=== PATIENT | male | born 1935 | race African-American/Black ===

== ENCOUNTER 2017-04-06 19:48 | Observation (INO) | payer MEDICARE ==
[~2017-04-06 19:48] MED LIST: Iopamidol 370 76% 100 ML VIAL ONE
[2017-04-06 20:15] LABS: #Basophils 0.1 thou/uL (0.0-0.2); #Eosinphils 0.1 thou/uL (0.0-0.7); #Lymphocytes 1.7 thou/uL (1.20-3.40); #Monocytes 0.6 thou/uL (0.11-0.59); %Basophils 0.9 % (0.0-1.0); %Eosinophils 1.8 % (0.0-10.0); %Monocytes 8.6 % (0.0-10.0); %Neutrophils 62.7 % (42.0-75.0); Hemoglobin 11.8 g/dL (14.0-18.0); Mean Corpuscular HGB CONC 32.6 g/dL (32.0-36.0); Mean Corpuscular Hemoglobin 30.5 pg (27.0-31.0); Mean Corpuscular Volume 93.5 fl (80.0-94.0); Platelet Count 264 thou/uL (130-400); RBC Distribution Width 14.4 % (11.5-14.5); Red Blood Cell (RBC) Count 3.86 mill/uL (4.70-6.10); White Blood Cell (WBC) Count 6.4 thou/uL (4.8-10.8)
[2017-04-06 20:26] LABS: D-Dimer Test 1.52 *mcg/mL (0.27-0.43)
[2017-04-06 20:34] LABS: ALT (SGPT) 13 U/L (8-55); AST (SGOT) 31 U/L (5-34); Albumin 4.2 g/dL (3.4-4.8); Alcohol 217 mg/dL (Less than 10); Alkaline Phosphatase 70 U/L (40-150); Anion Gap 15 mmol/L (10-20); BUN (Urea Nitrogen) 9 mg/dL (8.4-25.7); Bilirubin, Total 0.7 mg/dL (0.2-1.2); Calc. Creatinine Clearance 0 mL/min (70-130); Calcium 9.1 mg/dL (7.8-10.44); Carbon Dioxide 23 mmol/L (23-31); Chloride 96 mmol/L (98-107); Estimated GFR-MDRD 77; Globulin 4.4 g/dL (2.4-3.5); Glucose 94 mg/dL (83-110); Potassium 4.3 mmol/L (3.5-5.1); Protein, Total 8.6 g/dL (5.8-8.1); Sodium 130 mmol/L (136-145)
[2017-04-06 20:35] LABS: CKMB 3.7 ng/mL (0-6.6); Troponin I 0.015 ng/mL (< 0.028)
--- NOTE | 2017-04-06 20:46 | RAD ---
PORTABLE CHEST 04/06/17 An AP portable film at 1999 shows a normal sized heart. There are no congestive changes, pleural eff usions or lobar consolidations. IMPRESSION: No acute thoracic finding. POS: HOME
--- NOTE | 2017-04-06 20:51 | CT ---
CT OF THE BRAIN WITHOUT CONTRAST 04/06/17 Comparison is made with the 02/26/15 study. There has been no adverse interval change. No intracranial bleeding or extra-axial hematoma was seen . Diffuse atrophy with moderate compensatory dilatation of the ventricles is present as before. The ventricular sizes are no different. Patchy deep white matter lucency is consistent with chronic micr ovascular ischemia. There are a few more focal low density areas around the basal ganglia bilaterall y that could be small lacunar infarcts. The skull appears intact. The sphenoid sinus is clear, as ar e the mastoid air cells. IMPRESSION: Diffuse severe ischemic changes and atrophy. No acute intracranial findings. POS: HOME
--- NOTE | 2017-04-06 21:08 | CT ---
CT CERVICAL SPINE 04/06/17 Comparison is made with an 02/26/15 study. Axial slices were acquired, then coronal and sagittal reconstructions were done. No fracture, dislocation, or acute bony change was seen at any cervical level. the C1 to dens distan ce is normal and the soft tissues are normal in thickness. There are extensive degenerative changes throughout the spine with disc space narrowing, particularly noted at C4-C5 and C5-C6. Very large an terior and posterior osteophytes are present. Overall, the appearance of the cervical spine is not s ubstantially different than the prior exam. Multilevel spinal stenosis is present. Findings by caitlin sanchez follow: C1-C2: No acute findings. C2-C3: Very slight right foraminal narrowing. C3-C4: Mildly protruding disc osteophyte complex centrally. Mild bilateral foraminal stenosis. C4-C5: Mild right foraminal stenosis and moderate left foraminal stenosis. Central canal stenosis wi th 9 mm AP diameter of canal. C5-C6: Moderate bilateral foraminal stenosis. Central canal stenosis with 9 mm AP diameter. C6-C7: 10 mm AP diameter central canal. C7-T1: There is some disc space narrowing here. No acute change. T1-T2: No acute findings. IMPRESSION: 1. No acute traumatic changes. 2. Diffuse moderately severe arthritic changes with central canal stenosis at multiple levels a s indicated above. POS: HOME
[2017-04-06] MEDS ORDERED: Adacel (T-DAP) 0.5 ML VIAL ONE (21:43)
[2017-04-06 22:07] LABS: Bilirubin Negative (Negative); Blood, Urine Trace (Negative); Clarity Clear (Clear); Glucose, Urine (Dipstick) Negative (Negative); Leukocyte Negative (Negative); Nitrite Negative (Negative); Protein, Urine (Dipstick) Negative (Neg-Trace); Specific Gravity, Urine 1.004 (1.002-1.036); Urobilinogen 0.2 mg/dL (0.2-1.0)
[2017-04-06 22:15] LABS: Bacteria/HPF Rare-Few HPF (None Seen); RBC/HPF 0-3 HPF (0-3); Squamous Epithelial 0-3 HPF (0-3); WBC/HPF 0-3 HPF (0-3)
[2017-04-06 22:16] LABS: Crystals/HPF RARE AMORPH URATES HPF (Negative)
[2017-04-06 22:25] LABS: Amphetamine Not Detected (NotDetected); Barbiturates Screen Not Detected (NotDetected); Benzodiazepine Screen Not Detected (NotDetected); Cocaine Metabolite Screen Not Detected (NotDetected); Medtox Control Line Valid? VALID (VALID); Methadone Not Detected (NotDetected); Methamphetamine Not Detected (NotDetected); Opiate Screen Not Detected (NotDetected); Oxycodone Screen Not Detected (NotDetected); Phencyclidine (PCP) Not Detected (NotDetected); THC/Cannabinoid Screen Not Detected (NotDetected); Tricyclic Screen Not Detected (NotDetected)
--- NOTE | 2017-04-06 22:45 | CT ---
CT ANGIO OF THE CHEST 04/06/[address] of the chest was performed after a bolus of IV contrast. Axial slices were acquired, then oblique coronal reformations through the pulmonary arteries were obtained. There is good opacification of the pulmonary arteries with no internal filling defects to suggest em boli. There is no sign of aortic aneurysm or dissection. Arteriosclerosis is present, including in t he coronary arteries. The heart is enlarged but there is no substantial pericardial effusion. Emphysematous changes are seen throughout the lungs with areas of fibrosis throughout. A little depe ndent atelectasis is noted posteriorly. No worrisome mass or lobar consolidation was seen. There are no effusions. IMPRESSION: 1. No evidence of pulmonary embolism. 2. Coronary arteriosclerosis. 3. Right hilar adenopathy of uncertain significance. 4. COPD. POS: HOME
[2017-04-07] MEDS ORDERED: Acetaminophen 325 MG TAB PO PRN (00:22)
[2017-04-07] MEDS: Sodium Chloride 0.9% 1,000 ML IV SCH ×3 (01:00→10:19)
[2017-04-07 06:11] LABS: #Basophils 0.1 thou/uL (0.0-0.2); #Eosinphils 0.1 thou/uL (0.0-0.7); #Lymphocytes 1.3 thou/uL (1.20-3.40); #Monocytes 0.7 thou/uL (0.11-0.59); #Neutrophils 7.3 thou/uL (1.40-6.50); %Basophils 0.8 % (0.0-1.0); %Eosinophils 0.7 % (0.0-10.0); %Lymphocytes 13.8 % (21.0-51.0); %Monocytes 7.8 % (0.0-10.0); %Neutrophils 76.9 % (42.0-75.0); Hemoglobin 12.2 g/dL (14.0-18.0); Mean Corpuscular HGB CONC 33.6 g/dL (32.0-36.0); Mean Corpuscular Hemoglobin 31.2 pg (27.0-31.0); Mean Corpuscular Volume 92.8 fl (80.0-94.0); Mean Platelet Volume 7.8 fL (7.4-10.4); Platelet Count 268 thou/uL (130-400); RBC Distribution Width 14.4 % (11.5-14.5); Red Blood Cell (RBC) Count 3.92 mill/uL (4.70-6.10); White Blood Cell (WBC) Count 9.5 thou/uL (4.8-10.8)
[2017-04-07 14:02] VITALS: BP 160/76; TEMP 97.6
--- NOTE | 2017-04-07 16:19 | SS ---
CHIEF COMPLAINT: Found down and intoxicated. HISTORY OF PRESENT ILLNESS: Mr. Chase is an 82-year-old -[place] male with a past medical history of alcohol abuse, who was found face down in his yard by a neighbor. They called EMS who transported the patient to the emergency department. He has a history of alcoholism and neighbors had reported that he drinks and frequently appears intoxicated and unsteady on his feet. He underwent a thorough workup in the ER and was found to have a laceration to the lower right lip, which was sutured. He underwent a CT scan of the brain, C-spine and CT angiogram to rule out PE without any significant acute findings. His lab workup was unremarkable except for a sodium of 130. He had a positive D-dimer, which is why the CT angiogram was performed. He had a serum alcohol level that was elevated to the point that he could not be discharged safely from the emergency room and therefore was placed in observation overnight. The patient is a poor historian, but this morning is oriented x3. This is improved from the emergency room, where he was oriented to person and place only. He received IV fluids overnight and his alcohol level has improved to the point that he is stable for discharge. He has no other complaints this morning. PAST MEDICAL HISTORY: 1. Hypertension. 2. History of T3 N0 colon cancer, which was obstructing and required emergency surgery in 07/2016. 3. History of prostate cancer, treated with chemo and radiation. 4. Alcohol abuse. PAST SURGICAL HISTORY: 1. Prostate cancer surgery. 2. Appendectomy. 3. Prostatectomy. 4. Left colon resection with reversal of colostomy. 5. Laparoscopic ventral hernia repair. SOCIAL HISTORY: The patient admits to drinking a few beers at home daily. Denies drug use. Nonsmoker. FAMILY HISTORY: Noncontributory. ALLERGIES: PENICILLIN. MEDICATIONS: The patient states he takes a little white pill for his blood pressure, but does not know the name. REVIEW OF SYSTEMS: General: Denies fever, malaise, myalgias, or memory loss. Eyes: Denies changes in vision, diplopia. ENT: Denies facial pain, nasal congestion, sore throat. He has a laceration to his lip lower right, which was sutured in the ER. Cardiovascular: Denies chest pain, palpitations, orthopnea, or PND. Respiratory: Denies shortness of breath, cough, sputum production or hemoptysis. Abdomen: Denies abdominal pain, nausea, vomiting, diarrhea, or constipation. Genitourinary: Denies dysuria, urinary frequency or urgency. Musculoskeletal: The patient denies pain. Neurologic: The patient denies numbness, tingling or focal weakness. Psych: Denies anxiety, depression. PHYSICAL EXAMINATION: VITAL SIGNS: Temperature 98.6, heart rate 95, respirations 18, O2 saturation 98 % on room air, blood pressure 171/81. GENERAL: Slightly disheveled-appearing -[place] male, who is alert and oriented x3. HEENT: Normocephalic, frontal soft tissue swelling on the left noted without ecchymoses. Nares are patent without discharge. Tongue protrudes on the midline. The right lower lip wound is clean, dry, and intact and well approximated with at least two sutures in place. There is no discharge. NECK: Supple, without lymphadenopathy, thyromegaly, JVD or bruit. HEART: Regular rate and rhythm, normal S1, S2. A 3/6 systolic ejection murmur best heard left upper sternal border. No radiation. LUNGS: Clear to auscultation with good air entry bilaterally, no crackles or wheezes. ABDOMEN: Positive bowel sounds in all four quadrants, soft, nontender, nondistended. No masses, guarding, or rebound tenderness. EXTREMITIES: No cyanosis, clubbing or edema. NEUROLOGIC: Cranial nerves II through XII grossly intact. No focal deficits. LABORATORY DATA: White count 9.5, hemoglobin 12.2, hematocrit 36.4, MCV 93.8, and platelets 268. PT 13, INR 1.0, APTT 29. D-dimer is 1.52. Sodium 130, potassium 4.3, chloride 96, bicarbonate 23, BUN 9, creatinine 1.1, glucose 94, calcium 9.1, AST 31, ALT 13, alkaline phosphatase 70, CK-MB 3.7, troponin I 0.015, serum total protein 8.6, and albumin 4.2. Urinalysis is significant for trace of blood with 0-3 rbc's seen, otherwise negative. Urine drug screen is negative. Plasma alcohol on admission was 217 and at discharge is 39, which was done at 6 this morning. IMAGIN. Cervical spine CT shows no acute traumatic changes. Diffuse moderately severe arthritic changes with central canal stenosis at multiple levels. 2. Chest x-ray, no acute thoracic findings. 3. Brain CT shows diffuse severe ischemic changes and atrophy, but no acute intracranial findings. 4. Chest thorax CTA shows no evidence of pulmonary embolism. Coronary arteriosclerosis. Right hilar adenopathy of uncertain significance. COPD. ASSESSMENT AND PLAN: 1. Acute alcohol intoxication. The patient's plasma alcohol level has declined overnight with IV fluids. He is back to his normal baseline mental status. Therefore, he may be safely discharged back to home. He has been advised to cut down slowly to cessation of alcohol to avoid withdrawal. He is strongly advised to receive either rehabilitation or enter in Alcoholics Anonymous Program for help. 2. Hypertension. The patient was unsure of his chronic medications, but will resume this upon returning home. He is currently asymptomatic. 3. Lip laceration. Chromic suture was placed and therefore should resolve without needing removal in the office. Nevertheless, I would like him to see his PCP within the week to take a look at the laceration to rule out signs of infection. 4. Hyponatremia. This more than likely is due to the beer-drinker's potomania. Again, the patient has been advised to cut down slowly to cessation of alcohol. DISPOSITION: Discharged to home. CONDITION: Good. MEDICATIONS: The patient will resume his home blood pressure medication of unknown name. FOLLOWUP: Follow up with his primary care physician, Dr. Jim Ren within 7 days. MYLENE
--- NOTE | 2017-04-07 22:39 | RAD ---
RIGHT HAND THREE VIEWS: Date: 04-07-17 FINDINGS: There is a subtle nondisplaced fracture at the base of the proximal phalanx of the ring finger with extension into the fourth MCP joint. This appears to be a recent injury. Severe arthritic changes ar e seen throughout the wrist and IP joints of the fingers. The lunate is completely fragmented and th e carpal relations along the proximal row are no longer normal. This appears to be long standing and not acute. Severe arterial sclerotic change is seen in the arteries. IMPRESSION: 1. Undisplaced fracture at the base of the proximal phalanx of the ring finger. 2. Severe arthritic changes as noted above. 3. 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 4. Severe arterial sclerosis. Floor notified of findings at approximately 1500 on 04-07-17. POS: HOME
== END 2017-04-07 16:00 | disposition home or self-care (01) ==
LOC: BURERS 19:48 → BURMED 23:24
PROVIDERS: ADMIT Family Medicine; ATTEND Family Medicine
DX: F10.129 Alcohol abuse with intoxication, unspecified (principal); S01.511A Laceration without foreign body of lip, initial encounter; I10 Essential (primary) hypertension; E87.1 Hypo-osmolality and hyponatremia; Z88.0 Allergy status to penicillin; Z79.899 Other long term (current) drug therapy; Z93.3 Colostomy status; Z90.49 Acquired absence of other specified parts of digestive tract; Z90.79 Acquired absence of other genital organ(s); Z98.890 Other specified postprocedural states; Z92.3 Personal history of irradiation; Z92.21 Personal history of antineoplastic chemotherapy; Z85.46 Personal history of malignant neoplasm of prostate; Z85.038 Personal history of other malignant neoplasm of large intestine
CPT/HCPCS: 12011; 36415; 70450; 71010; 71275; 72125; 80053; 80306; 80307; 81003; 81015; 82553; 84484; 85025; 85379; 85610; 85730; 90471; 90715; 93005; 94760; 96360; 96361; A4216; G0378; Q4049

== ENCOUNTER 2017-08-03 15:32 | Emergency (ER) | payer MEDICARE ==
[2017-08-03 16:42] LABS: #Basophils 0.1 thou/uL (0.0-0.2); #Lymphocytes 0.9 thou/uL (1.20-3.40); #Neutrophils 8.7 thou/uL (1.40-6.50); %Basophils 0.6 % (0.0-1.0); %Eosinophils 0.4 % (0.0-10.0); %Lymphocytes 8.7 % (21.0-51.0); %Neutrophils 81.4 % (42.0-75.0); Hemoglobin 11.6 g/dL (14.0-18.0); Mean Corpuscular HGB CONC 33.2 g/dL (32.0-36.0); Mean Corpuscular Hemoglobin 29.8 pg (27.0-31.0); Mean Corpuscular Volume 89.8 fl (80.0-94.0); Mean Platelet Volume 8.2 fL (7.4-10.4); Platelet Count 284 thou/uL (130-400); Red Blood Cell (RBC) Count 3.88 mill/uL (4.70-6.10); White Blood Cell (WBC) Count 10.7 thou/uL (4.8-10.8)
[2017-08-03 16:57] LABS: Bilirubin Negative (Negative); Blood, Urine Trace (Negative); Clarity Clear (Clear); Glucose, Urine (Dipstick) Negative (Negative); Leukocyte Negative (Negative); Nitrite Negative (Negative); Protein, Urine (Dipstick) 100 mg/dL (Neg-Trace); Specific Gravity, Urine 1.015 (1.005-1.030); pH, Urine 8.5 (5.0-9.0)
[2017-08-03 16:59] LABS: Carbon Dioxide 24 mmol/L (23-31); Chloride 101 mmol/L (98-107); Potassium 4.3 mmol/L (3.5-5.1); Sodium 139 mmol/L (136-145)
[2017-08-03 17:00] LABS: Anion Gap 18 mmol/L (10-20); BUN (Urea Nitrogen) 23 mg/dL (8.4-25.7); Bilirubin, Total 0.9 mg/dL (0.2-1.2); Calc. Creatinine Clearance 0 mL/min (70-130); Calcium 9.6 mg/dL (7.8-10.44); Estimated GFR-MDRD 58; Glucose 96 mg/dL (83-110); Protein, Total 8.4 g/dL (5.8-8.1)
[2017-08-03 17:01] LABS: ALT (SGPT) 13 U/L (8-55); AST (SGOT) 27 U/L (5-34); Albumin 3.9 g/dL (3.4-4.8); Alkaline Phosphatase 62 U/L (40-150); Globulin 4.5 g/dL (2.4-3.5)
[2017-08-03 17:02] LABS: CKMB 3.9 ng/mL (0-6.6); Troponin I Less than 0.010 ng/mL (< 0.028)
[2017-08-03 17:09] LABS: Bacteria/HPF Rare-Few HPF (None Seen); RBC/HPF 0-3 HPF (0-3); Squamous Epithelial 0-3 HPF (0-3); WBC/HPF 0-3 HPF (0-3)
--- NOTE | 2017-08-03 22:01 | RAD ---
PORTABLE CHEST 08/03/17 An AP portable film at 1537 is compared with a 04/06/17 study. The heart is normal in size and the lungs are clear. No infiltrate or effusion was seen. There is no congestive change. The mediastinum was unremarkable. Degenerative changes are seen in each shoulder. IMPRESSION: No acute thoracic finding. POS: HOME
--- NOTE | 2017-08-03 22:37 | CT ---
CT OF THE LUMBAR SPINE 08/03/[address] of the lumbar spine was performed for evaluation of bilateral back pain. Axial slices were acquired followed by coronal and sagittal reconstructions. No fracture, dislocation, or acute bony change was seen. Prominent Schmorl's nodes are seen in the in ferior end plate of L2 and particularly the superior end plate of L3. Disc space narrowing is present to some extent at most levels with a grossly degenerated disc at L4-L5. There were a few extremely vague areas of increased density in some of the vertebral bodies, but not discrete enough on multiple views to raise significant suspicion for metastatic disease. The T12-L1 t hrough L3-L4 levels showed no acute change or sign of foraminal or central canal stenosis. Anterior o steophytes are prominent at L3-L4. At L4-5, there is probably a small right paracentral protrusion of the disc which may be causing some neural impingement. Correlate with clinical symptoms. At L5-S1, there is a diffuse concentric bulge of the disc. MRI would be much more sensitive in this p atient at displaying any pathology in the vertebrae or the exact status of the disc. IMPRESSION: No definite acute findings, but there does appear to be a right paracentral disc protrusion at L4-L5 and diffuse concentric bulging of the disc at L5-S1. Consider MRI to better evaluate the vertebral christy dies themselves, as well as the discs, if clinically indicated. POS: HOME
== END 2017-08-03 18:37 | disposition home or self-care (01) ==
LOC: BURERS 15:32
DX: M54.5 Low back pain (principal); R53.83 Other fatigue; I10 Essential (primary) hypertension
CPT/HCPCS: 36415; 51701; 71045; 72131; 80053; 81003; 81015; 82274; 82553; 83605; 84484; 85025; 87040; 93005; 94760

== ENCOUNTER 2019-02-23 08:04 | Emergency (ER) | payer MEDICARE ==
--- NOTE | 2019-02-23 18:52 | RAD ---
RIGHT HUMERUS TWO VIEWS: 02/23/2019 FINDINGS: There is a possibility that this could be an impacted fracture, though the finding is not definitive. the area looks slightly different than it did on the 2018 chest film; therefore, my level of suspic ion is slightly increased. The humeral shaft appears intact. No gross abnormality are seen at the e lbow. IMPRESSION: Equivocal findings in the proximal humerus, around the anatomical neck. Cannot completely exclude an impacted fracture. If this is the site of pain, then follow-up films of the shoulder, perhaps after a 5 to 7 day delay, could be helpful. POS: HOME
--- NOTE | 2019-02-23 19:11 | RAD ---
RIGHT SHOULDER THREE VIEWS: 02/23/2019 FINDINGS: As mentioned on the humeral films, there is a little more sclerosis around the area of the anatomic n lane of the humerus than can be seen on the old chest films. The findings are indeterminate for a de finite fracture, though an impacted injury is possible. At this point, I do not believe one can conf idently make a diagnosis. Follow-up films in 7 to 10 days could be helpful. There is evidence of christy ny spurring and perhaps old trauma at the AC joint. IMPRESSION: Equivocal findings in the proximal humerus, around the anatomical neck. Not definitive for fracture but worth following up if this correlates with his site of pain. POS: HOME
== END 2019-02-23 09:23 | disposition home or self-care (01) ==
LOC: BURERS 08:04
DX: S42.291A Other displaced fracture of upper end of right humerus, initial encounter for closed fracture (principal); I10 Essential (primary) hypertension; W19.XXXA Unspecified fall, initial encounter

== ENCOUNTER 2019-03-31 20:08 | Emergency (ER) | payer MEDICARE ==
--- NOTE | 2019-03-31 21:32 | CT ---
CT OF THE BRAIN WITHOUT CONTRAST: 03/31/[address] was compared with the prior exam dated 09/09/17. There has been no adverse interval change. Diffuse atrophy with moderate compensatory dilatation of t he ventricles is present. Patchy deep white matter lucency is present before signifying chronic isch emic changes. No intracranial bleeding or extra-axial hematoma was seen. The falx is densely calcifie d. The calvarium appears intact. The sphenoid sinus and mastoid air cells are clear. IMPRESSION: Chronic ischemic changes and atrophy but no acute intracranial findings. POS: HOME
== END 2019-03-31 20:40 | disposition home or self-care (01) ==
LOC: BURERS 20:08
DX: Z04.3 Encounter for examination and observation following other accident (principal); I10 Essential (primary) hypertension; W18.30XA Fall on same level, unspecified, initial encounter
CPT/HCPCS: 70450

== ENCOUNTER 2019-06-27 10:30 | Emergency (ER) | payer MEDICARE ==
[2019-06-27] MEDS ORDERED: Ibuprofen 200 MG TAB ONE (10:41)
[2019-06-27] MEDS ORDERED: Silver Sulfadiazine 1% Cream 50 GM JAR ONE (10:41)
[2019-06-27] MEDS ORDERED: traMADol HCl 50 MG TAB ONE (10:41)
[2019-06-27] MEDS ORDERED: Adacel (T-DAP) 0.5 ML SYRINGE ONE (11:26)
== END 2019-06-27 11:32 | disposition home or self-care (01) ==
LOC: BURERS 10:30
DX: T25.222A Burn of second degree of left foot, initial encounter (principal); I10 Essential (primary) hypertension; X11.8XXA Contact with other hot tap-water, initial encounter
CPT/HCPCS: 16020; 90471; 90715; G0390

== ENCOUNTER 2019-07-08 11:43 | Emergency (ER) | payer MEDICARE ==
--- NOTE | 2019-07-08 12:30 | RAD ---
XR Ankle Rt 3 View STANDARD History: Pain and swelling Comparison: None. Findings: Moderate bimalleolar soft tissue swelling. Advanced vascular calcifications. No acute fract ure or malalignment. There is sclerosis distal tibial metaphysis likely sequelae of benign chondroid lesion. Subcortical c ysts the distal fibular metadiaphysis. Mild soft tissue swelling of the hindfoot and midfoot. Impression: Moderate bimalleolar soft tissue swelling can be sequelae of cellulitis in the correct cl inical setting.
[2019-07-08 12:37] LABS: ALT (SGPT) 13 U/L (8-55); AST (SGOT) 23 U/L (5-34); Albumin 3.9 g/dL (3.4-4.8); Alcohol Less than 10 mg/dL (Less than 10); Alkaline Phosphatase 64 U/L (40-110); Anion Gap 17 mmol/L (10-20); BUN (Urea Nitrogen) 20 mg/dL (8.4-25.7); Bilirubin, Total 1.7 mg/dL (0.2-1.2); Calc. Creatinine Clearance 0 mL/min (70-130); Calcium 10.1 mg/dL (7.8-10.44); Carbon Dioxide 22 mmol/L (23-31); Chloride 106 mmol/L (98-107); Estimated GFR-MDRD 57; Globulin 5.4 g/dL (2.4-3.5); Glucose 118 mg/dL (83-110); Potassium 3.8 mmol/L (3.5-5.1); Protein, Total 9.3 g/dL (5.8-8.1); Sodium 141 mmol/L (136-145)
--- NOTE | 2019-07-08 12:48 | RAD ---
XR Knee Rt 3 View History: Pain and swelling Comparison: None. Findings: High-grade tricompartmental degenerative changes, greatest in the lateral and patellofemora l compartments. Large joint effusion. 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 Extensive vascular calcifications. Impression: 1. High-grade degenerative changes, greatest in the patellofemoral and lateral compartments. 2. Large joint effusion greater than would be expected for reactive changes from underlying degenerat ion. Aspiration recommended if there is underlying concern for septic arthritis. 3. 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
[2019-07-08 12:52] LABS: Hemoglobin 9.6 g/dL (14.0-18.0); Mean Corpuscular Hemoglobin 29.2 pg (27.0-31.0); Mean Corpuscular Volume 91.2 fL (78.0-98.0); Platelet Count 272 thou/uL (130-400); White Blood Cell (WBC) Count 13.8 thou/uL (4.8-10.8)
[2019-07-08 13:03] LABS: Band 1 % (5-11); Lymphocytes 10 % (21-51); MDiff Complete? YES; Monocytes 20 % (0-10); Neutrophil 69 % (42-75)
[2019-07-08 13:06] LABS: Bilirubin Small (Negative); Blood, Urine Moderate (Negative); Clarity Cloudy (Clear); Glucose, Urine (Dipstick) Negative (Negative); Leukocyte Small (Negative); Nitrite Negative (Negative); Protein, Urine (Dipstick) > or equal to 300 mg/dL (Neg-Trace)
[2019-07-08 13:10] LABS: Bacteria/HPF 1+ HPF (None Seen); Mucous/LPF 1+ LPF (<2+); Squamous Epithelial 0-3 HPF (0-3); Trichomonas/HPF 1+ HPF (None Seen)
[2019-07-08] MEDS ORDERED: Lidocaine 1% PF 5 ML VIAL ONE (13:10)
[2019-07-08] MEDS ORDERED: cefTRIAXone\\ROCEPHIN 1 GM VIAL ONE (13:40)
[2019-07-08] MEDS ORDERED: metroNIDAZOLE 250 MG TAB ONE ×2 (15:10→15:15)
[2019-07-08] MEDS ORDERED: Acetaminophen 500 MG TAB ONE (15:35)
[2019-07-08 18:26] LABS: BF Color Pink; Body Fluid Source Synovial Fluid; Clarity Cloudy/Turbid (Clear); RBC Count-Automated (BF) 15406 /cumm; Tube # EDTA; WBC/Nucleated-Auto (BF) 30563 uL
[2019-07-08 19:27] LABS: Cell Count Non Hematic 2 %; Lymphocytes 2 %
[2019-07-08 19:28] LABS: BF Segmented Neutrophils 70 %; Eosinophils 26 %
[2019-07-09 17:33] LABS: Chlam.trachomatis by PCR,Urine Not Detected (NotDetected)
== END 2019-07-08 16:08 | disposition short-term general hospital (02) ==
LOC: BURERS 11:43
DX: M00.9 Pyogenic arthritis, unspecified (principal); L03.115 Cellulitis of right lower limb; D64.9 Anemia, unspecified; A59.03 Trichomonal cystitis and urethritis; N39.0 Urinary tract infection, site not specified; I10 Essential (primary) hypertension; Z79.899 Other long term (current) drug therapy
CPT/HCPCS: 20610; 36415; 80053; 80307; 81003; 81015; 82945; 83605; 84157; 85025; 85060; 87040; 87070; 87086; 87205; 87491; 87591; 89051; 89060; 93005; 94760; 96361; 96365; 96375; J0696; J2001; J3370

== ENCOUNTER 2019-07-14 12:00 | Inpatient (IN) | payer MEDICARE ==
[2019-07-14 14:52] VITALS: BMI 22.8
[2019-07-14] MEDS: Acetaminophen 325 MG TAB PO PRN (22:12)
[2019-07-15] MEDS: Colchicine 0.6 MG TAB PO SCH (08:57)
[2019-07-15] MEDS: Amlodipine 10 MG TAB PO SCH (08:57)
[2019-07-15] MEDS: Folic Acid 1 MG TAB PO SCH (08:58)
[2019-07-15] MEDS: Ascorbic Acid 500 mg Chewable Tablet PO SCH (08:58)
[2019-07-15] MEDS ORDERED: Prevnar 13-Val Conj/PF 0.5 ML SYRINGE IM ONE (09:00)
[2019-07-15] MEDS: Acetaminophen 325 MG TAB PO PRN ×2 (13:44→20:33)
[2019-07-15] MEDS: Famotidine 20 MG TAB PO SCH (20:33)
[2019-07-16] MEDS: Ascorbic Acid 500 mg Chewable Tablet PO SCH (09:36)
[2019-07-16] MEDS: Folic Acid 1 MG TAB PO SCH (09:36)
[2019-07-16] MEDS: Amlodipine 10 MG TAB PO SCH (09:36)
[2019-07-16] MEDS: Famotidine 20 MG TAB PO SCH ×2 (09:37→20:29)
[2019-07-16] MEDS: Colchicine 0.6 MG TAB PO SCH (09:37)
[2019-07-16] MEDS: Cyanocobalamin (Vitamin B-12) 1,000 MCG TAB PO SCH (09:37)
[2019-07-16] MEDS: Acetaminophen 325 MG TAB PO PRN (21:28)
[2019-07-17] MEDS: Acetaminophen 325 MG TAB PO PRN ×2 (05:55→21:11)
[2019-07-17] MEDS: Famotidine 20 MG TAB PO SCH ×2 (08:27→21:11)
[2019-07-17] MEDS: Colchicine 0.6 MG TAB PO SCH (08:27)
[2019-07-17] MEDS: Cyanocobalamin (Vitamin B-12) 1,000 MCG TAB PO SCH (08:27)
[2019-07-17] MEDS: Folic Acid 1 MG TAB PO SCH (08:27)
[2019-07-17] MEDS: Ascorbic Acid 500 mg Chewable Tablet PO SCH (08:27)
[2019-07-17] MEDS: Amlodipine 10 MG TAB PO SCH (08:28)
[2019-07-18] MEDS: Famotidine 20 MG TAB PO SCH ×2 (08:50→21:41)
[2019-07-18] MEDS: Ascorbic Acid 500 mg Chewable Tablet PO SCH (08:50)
[2019-07-18] MEDS: Amlodipine 10 MG TAB PO SCH (08:50)
[2019-07-18] MEDS: Folic Acid 1 MG TAB PO SCH (08:52)
[2019-07-18] MEDS: Cyanocobalamin (Vitamin B-12) 1,000 MCG TAB PO SCH (08:52)
[2019-07-18] MEDS: Colchicine 0.6 MG TAB PO SCH (08:52)
[2019-07-19] MEDS: Amlodipine 10 MG TAB PO SCH (09:24)
[2019-07-19] MEDS: Colchicine 0.6 MG TAB PO SCH (09:25)
[2019-07-19] MEDS: Cyanocobalamin (Vitamin B-12) 1,000 MCG TAB PO SCH (09:25)
[2019-07-19] MEDS: Famotidine 20 MG TAB PO SCH ×2 (09:25→21:38)
[2019-07-19] MEDS: Folic Acid 1 MG TAB PO SCH (09:25)
[2019-07-19] MEDS: Ascorbic Acid 500 mg Chewable Tablet PO SCH (09:25)
[2019-07-20 06:22] VITALS: TEMP 98.4
[2019-07-20] MEDS: Folic Acid 1 MG TAB PO SCH (08:35)
[2019-07-20] MEDS: Famotidine 20 MG TAB PO SCH (08:35)
[2019-07-20] MEDS: Amlodipine 10 MG TAB PO SCH (08:35)
[2019-07-20] MEDS: Cyanocobalamin (Vitamin B-12) 1,000 MCG TAB PO SCH (08:38)
[2019-07-20] MEDS: Ascorbic Acid 500 mg Chewable Tablet PO SCH (08:38)
[2019-07-20] MEDS: Colchicine 0.6 MG TAB PO SCH (08:38)
[2019-07-20] MEDS: Acetaminophen 325 MG TAB PO PRN (08:38)
[2019-07-20 08:39] VITALS: BP 110/53
--- NOTE | 2019-07-20 23:59 | DIS ---
DATE OF ADMISSION: 07/14/2019 DATE OF DISCHARGE: 07/20/2019 ADMISSION DIAGNOSES: Physical deconditioning, pseudogout, chronic macrocytic anemia and hypertension. PROCEDURES: None. HOSPITAL COURSE: An 84-year-old male who was initially seen and treated at [facility]. Initial concern was that the patient may have a septic joint, in particular his right knee secondary to noted effusion; he was treated for trichomonal urethritis while there. The patient was started on colchicine and showed rapid improvement of his right knee effusion and right knee pain. He was diagnosed with diagnosis of pseudogout and transitioned to [facility] for PT and OT secondary to his underlying physical deconditioning. While here, he has been able to participate well and improved upon his ability to ambulate and transfer safely. He has met the goals set forth by PT and OT to be able to discharge back to his home setting where he lives with his niece. The patient reports that he has no significant pain involving his knee. He has no residual effusion and is amenable to discharge home at this time. DISPOSITION: The patient will discharge home where he lives with his niece. He may follow up with myself in the clinic in a week. DISCHARGE MEDICATIONS: Include: 1. Amlodipine 10 mg daily. 2. Folic acid 1 mg daily. 3. Ferrous sulfate 325 mg b.i.d. 4. Vitamin B12 1000 mcg p.o. daily. 5. Colchicine 0.6 mg daily. 6. Vitamin C 500 mg daily. Job ID: [id number] MTDD
== END 2019-07-20 13:34 | disposition home or self-care (01) | DRG 554 ==
LOC: BURMED 14:05
PROVIDERS: ADMIT Family Medicine; ATTEND Family Medicine
DX: M11.261 Other chondrocalcinosis, right knee (principal); A59.03 Trichomonal cystitis and urethritis; I10 Essential (primary) hypertension; D53.9 Nutritional anemia, unspecified

== ENCOUNTER 2020-02-04 17:05 | Observation (INO) | payer MEDICARE ==
[2020-02-04 17:57] LABS: #Lymphocytes 0.8 thou/uL (1.20-3.40); #Monocytes 0.4 thou/uL (0.11-0.59); #Neutrophils 6.3 thou/uL (1.40-6.50); %Basophils 0.4 % (0.0-1.0); %Eosinophils 0.4 % (0.0-10.0); %Lymphocytes 10.5 % (21.0-51.0); %Monocytes 5.6 % (0.0-10.0); %Neutrophils 83.2 % (42.0-75.0); Elliptocytes SLIGHT = 2-5 cells (100X) (0-1/hpf); Hemoglobin 10.3 g/dL (14.0-18.0); MDiff Complete? YES; Mean Corpuscular HGB CONC 29.8 g/dL (32.0-36.0); Mean Corpuscular Volume 90.6 fL (78.0-98.0); Mean Platelet Volume 7.9 fL (7.4-10.4); Platelet Count 259 thou/uL (130-400); RBC Distribution Width 15.9 % (11.5-14.5); Red Blood Cell (RBC) Count 3.81 mill/uL (4.70-6.10); White Blood Cell (WBC) Count 7.5 thou/uL (4.8-10.8)
[2020-02-04 18:02] LABS: ALT (SGPT) 11 U/L (8-55); AST (SGOT) 16 U/L (5-34); Alkaline Phosphatase 79 U/L (40-110); Anion Gap 13 mmol/L (10-20); BUN (Urea Nitrogen) 18 mg/dL (8.4-25.7); Bilirubin, Total 0.7 mg/dL (0.2-1.2); Calc. Creatinine Clearance 0 mL/min (70-130); Calcium 9.3 mg/dL (7.8-10.44); Carbon Dioxide 26 mmol/L (23-31); Chloride 104 mmol/L (98-107); Globulin 4.6 g/dL (2.4-3.5); Glucose 136 mg/dL (83-110); Lipase 12 U/L (8-78); Potassium 4.2 mmol/L (3.5-5.1); Protein, Total 8.6 g/dL (5.8-8.1); Sodium 139 mmol/L (136-145)
--- NOTE | 2020-02-04 18:26 | CT ---
CT ABDOMEN AND PELVIS WITH CONTRAST: 02/04/[address] of the abdomen and pelvis was performed for evaluation of abdominal pain. The lung bases are clear except for some minor scarring or atelectasis. There are no effusions or isela und glass infiltrates. The liver, spleen, pancreas, adrenal glands, kidneys, and abdominal aorta showed no acute findings. T he gallbladder is small and difficult to evaluate. The stomach is mildly distended and fluid filled. The duodenum seems more normal in size as does the first loop or two of proximal jejunum, but then it dilates to 2 cm in width for several feet. The sma ll bowel then assumes a more normal width. There is mild gaseous distention of transverse colon. The distal small bowel is not dilated. There is no free air or free fluid. CT of the pelvis shows no pel shankar masses, fluid collections, or gross inflammatory changes. Degenerative changes are seen throughou t the spine. IMPRESSION: 1. While the overall pattern is perhaps a little more like an ileus or enteritis with the fluid filled stomach and fluid filled loops of small bowel, given a loop that is up to 3 cm in width, I can not exclude the possibility of an impending partial small bowel obstruction. Particularly in view of the patient's age, I would recommend close observation of the patient. 2. Gallbladder not fully evaluated as it collapsed. Preliminary report discussed with Dr. Presley at 1811 on 02/04/20. POS: HOME
[2020-02-04] MEDS ORDERED: Ondansetron PF 4 MG/2 ML Vial IVP PRN (20:23)
[2020-02-04] MEDS ORDERED: Ondansetron ODT 4 MG TAB SL PRN (20:23)
[2020-02-04] MEDS ORDERED: Morphine 4 MG/ML VIAL SLOW IVP PRN (20:25)
[2020-02-04] MEDS: Sodium Chloride 0.9% 1,000 ML IV SCH (21:46)
[2020-02-05] MEDS: Sodium Chloride 0.9% 1,000 ML IV SCH (06:02)
[2020-02-05] MEDS ORDERED: Acetaminophen 325 MG TAB PO PRN (07:12)
[2020-02-05] MEDS ORDERED: Amlodipine 10 MG TAB PO SCH (09:00)
[2020-02-05] MEDS ORDERED: Prevnar 13-Val Conj/PF 0.5 ML SYRINGE IM ONE (09:00)
[2020-02-05] MEDS ORDERED: Folic Acid 1 MG TAB PO SCH (09:00)
[2020-02-05] MEDS ORDERED: Ascorbic Acid 500 mg Chewable Tablet PO SCH (09:00)
[2020-02-05] MEDS ORDERED: Cyanocobalamin (Vitamin B-12) 1,000 MCG TAB PO SCH (09:00)
[2020-02-05 14:11] VITALS: BP 141/66; TEMP 98.4
--- NOTE | 2020-02-06 05:11 | HP ---
CHIEF COMPLAINT: Abdominal pain. HISTORY OF PRESENT ILLNESS: This is an 85-year-old male who presented to the [facility] Emergency Department last night with complaints of abdominal pain which he described as dull and predominantly around the periumbilical area for an unknown amount of time. The patient has underlying dementia and is overall a poor historian. He did report having some association with constipation, but denied having nausea or vomiting. A CT scan of the abdomen and pelvis was obtained which had some concern for the possibility of an impending partial small-bowel obstruction. The patient has had prior intraabdominal procedures and has had a prior small bowel obstruction in the past. His lab work was overall reassuring and at his baseline. Due to the patient's complaints of abdominal pain and abnormal findings per CT scan, it was decided to admit this patient for observation status overnight while keeping him n.p.o. in order to make sure he did not advance to a full small-bowel obstruction which would then require further care. The patient was provided pain medication and he slept well throughout the night. As of this morning, he has no complaints of abdominal pain and physical exam concurs with this. His diet was advanced from n.p.o. to a full clears diet which he tolerated very well. As of recheck this afternoon, he is in no pain and feels amenable to discharge back to his home. PAST MEDICAL HISTORY: Includes hypertension, dementia, history of prostate cancer treated with chemo and radiation and surgical intervention. PAST SURGICAL HISTORY: Includes appendectomy, prostatectomy, hernia repair, colostomy with reversal. SOCIAL HISTORY: The patient drinks daily, unknown quantities. No smoking or illicit drug use. He is looked after by his niece who is his medical power of manager eligibility. ALLERGIES: PENICILLIN. FAMILY HISTORY: Noncontributory. CURRENT MEDICATIONS: Include 1. Amlodipine 10 mg daily. 2. Vitamin B12 injection 1000 mcg/mL monthly. REVIEW OF SYSTEMS: GENERAL: Denies fever, chills or diaphoresis. EAR, NOSE, AND THROAT: Denies sore throat, nasal drainage or congestion. CARDIOVASCULAR: Denies chest pain or palpitations. RESPIRATORY: Denies shortness of breath or cough. GASTROINTESTINAL: Initial complaints of abdominal pain. These have now resolved. GENITOURINARY: Denies dysuria. MUSCULOSKELETAL: Denies joint swelling. DERM: Denies rash. NEUROLOGIC: Denies headache. LABORATORY DATA: White blood cell count 7.5, hemoglobin 10.3, hematocrit 34.5, and platelets are 259. Sodium 139, potassium 4.2, BUN 18, creatinine 1.40 with a GFR 58, glucose 136. Lactic acid 0.8. AST is 16, ALT is 11, lipase is 12. Troponin was less than 0.010. BNP is 30.5. IMAGING: CT scan of the abdomen and pelvis on 02/04/20 showed while the overall pattern is perhaps a little more like an ileus or enteritis with a fluid-filled stomach and fluid-filled loops of small bowel, given a loop that is up to 3 cm in width, I cannot exclude the possibility of an impending partial small-bowel obstruction. Particularly in view of the patient's age, I would recommend close observation of the patient. Gallbladder not fully evaluated as it is collapsed. PHYSICAL EXAMINATION: VITAL SIGNS: Temperature is 98.3, blood pressure 155/70, pulse is 75, respiratory rate is 18, oxygen is 99% on room air. GENERAL: The patient is elderly, alert, in no acute distress. HEAD, EYES, EARS, NOSE AND THROAT: Normocephalic and atraumatic. Conjunctivae are clear. Sclerae are clear. Extraocular muscles are intact bilaterally. Pupils are equal, round, and reactive to light. Moist mucous membranes. NECK: Supple with no lymphadenopathy. CARDIOVASCULAR: Regular rate and rhythm. Normal S1, S2. No murmurs. RESPIRATORY: Clear to auscultation bilaterally with no wheezes, rales, or rhonchi. GASTROINTESTINAL: Soft, nontender to palpation. No masses. There is a well- healed vertical scar to the mid lower abdomen. EXTREMITIES: No clubbing, cyanosis, or edema. SKIN: No rashes. NEUROLOGIC: Nonfocal with cranial nerves 2 through 12 grossly intact. Peripheral pulses are 2+ to all 4 extremities. ASSESSMENT AND PLAN: 1. Abdominal pain. CT scan notably questionable for possibility of developing small bowel obstruction. Of note, the patient has had a prior small bowel obstruction and prior surgical procedures, putting him at risk for adhesions and volvulus. The patient was kept n.p.o. overnight and his abdominal pain resolved. He was p.o. challenged with a full clear diet which he tolerated well and has no abdominal pain thereafter. He has no nausea or vomiting with stable labs and vitals and thus is appropriate for discharge home with ED precautions given to return for evaluation for persistent intractable abdominal pain or inability to tolerate a diet. 2. Hypertension. The patient was resumed on his usual amlodipine, which will be continued as an outpatient. 3. Dementia, stable chronic issue. He stays with his niece who is his medical power of manager eligibility. DISPOSITION: The patient is appropriate for discharge home as above. He may follow up with myself in the clinic in 1 week. Job ID: [id number] [facility]
== END 2020-02-05 13:55 | disposition home or self-care (01) ==
LOC: BURERS 17:05 → BURMED 18:35
PROVIDERS: ADMIT Family Medicine; ATTEND Family Medicine
DX: R10.33 Periumbilical pain (principal); I10 Essential (primary) hypertension; F03.90 Unspecified dementia, unspecified severity, without behavioral disturbance, psychotic disturbance, mood disturbance, and anxiety; Z85.46 Personal history of malignant neoplasm of prostate; Z79.899 Other long term (current) drug therapy; Z88.0 Allergy status to penicillin; Z98.890 Other specified postprocedural states
CPT/HCPCS: 74177; 80053; 83605; 83690; 83880; 84484; 85025; 93005; 96361; 96374; G0378; J2270; Q9967

== ENCOUNTER 2020-02-24 18:46 | Emergency (ER) | payer MEDICARE ==
[2020-02-24 19:35] LABS: #Lymphocytes 1.3 thou/uL (1.20-3.40); #Monocytes 0.5 thou/uL (0.11-0.59); #Neutrophils 8.5 thou/uL (1.40-6.50); %Basophils 0.4 % (0.0-1.0); %Eosinophils 0.1 % (0.0-10.0); %Lymphocytes 12.3 % (21.0-51.0); %Monocytes 4.4 % (0.0-10.0); %Neutrophils 82.7 % (42.0-75.0); Hemoglobin 10.4 g/dL (14.0-18.0); Mean Corpuscular HGB CONC 30.6 g/dL (32.0-36.0); Mean Corpuscular Volume 88.2 fL (78.0-98.0); Mean Platelet Volume 8.2 fL (7.4-10.4); Platelet Count 259 thou/uL (130-400); RBC Distribution Width 15.2 % (11.5-14.5); Red Blood Cell (RBC) Count 3.87 mill/uL (4.70-6.10); White Blood Cell (WBC) Count 10.3 thou/uL (4.8-10.8)
[2020-02-24 19:48] LABS: ALT (SGPT) 14 U/L (8-55); AST (SGOT) 15 U/L (5-34); Albumin 4.1 g/dL (3.4-4.8); Alkaline Phosphatase 88 U/L (40-110); Anion Gap 19 mmol/L (10-20); BUN (Urea Nitrogen) 20 mg/dL (8.4-25.7); Calc. Creatinine Clearance 0 mL/min (70-130); Calcium 9.7 mg/dL (7.8-10.44); Carbon Dioxide 20 mmol/L (23-31); Chloride 104 mmol/L (98-107); Estimated GFR-MDRD 73; Globulin 4.9 g/dL (2.4-3.5); Glucose 153 mg/dL (83-110); Lipase 7 U/L (8-78); Potassium 3.8 mmol/L (3.5-5.1); Sodium 139 mmol/L (136-145)
[2020-02-24 20:21] LABS: Bilirubin Negative (Negative); Blood, Urine Trace (Negative); Clarity Clear (Clear); Glucose, Urine (Dipstick) Negative (Negative); Ketone, Urine 40 mg/dL (Negative); Leukocyte Negative (Negative); Nitrite Negative (Negative); Protein, Urine (Dipstick) > or equal to 300 mg/dL (Neg-Trace); Specific Gravity, Urine 1.025 (1.005-1.030)
[2020-02-24 20:25] LABS: Bacteria/HPF Rare-Few HPF (None Seen); RBC/HPF 0-3 HPF (0-3); Squamous Epithelial 0-3 HPF (0-3); WBC/HPF 0-3 HPF (0-3)
[2020-02-24 20:26] LABS: Other Microscopic Description C&S SET UP
[2020-02-24] MEDS ORDERED: Pantoprazole 40 MG VIAL ONE (20:29)
--- NOTE | 2020-02-24 20:52 | RAD ---
PORTABLE CHEST: 02/24/20 Comparison is made with the 09/09/17 study. This portable film [id number] shows a normal sized heart and clear lungs. No infiltrate or effusion was s een. The mediastinum appears normal. Some mild degenerative changes are seen in the shoulders. IMPRESSION: No acute thoracic finding. POS: HOME
--- NOTE | 2020-02-24 21:05 | CT ---
CT ABDOMEN AND PELVIS WITH CONTRAST: 02/24/20 Comparison is made with the 02/04/20 CT as well as a prior exam dated 08/24/16. The lung bases are clear. The liver, spleen, pancreas, kidneys, adrenal glands, and abdominal aorta s howed no acute change. The gallbladder is decompressed and difficult to assess. There is a significant amount of fluid in the stomach. Some of the loops proximal jejunum are mildly dilated. The more distal small bowel shows no dilation at all. There is mild gaseous distention of th e transverse colon but not the distal colon. No free air or free fluid was seen. Some of the loops of small bowel in the right lower quadrant may be adherent to the inside of the anterior abdominal wall , but there is no dilation of small bowel at all in this location. I would note that the general conf iguration of bowel is interesting in that more of the right colon seems rather high in location and t he lower quadrant seem to be almost all small bowel. 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 CT of the pelvis showed no fluid collections, inflammatory changes or acute findings here. The prosta te is quite large in this patient. Degenerative changes are seen throughout the spine. IMPRESSION: Fluid-filled mildly distended stomach in some fluid-filled mildly distended loops of proximal jejunum . The width of the jejunal loops is no more than it was on 02/03, but there may be a few more of them t hat are similarly dilated and fluid-filled. With this slight evolution over time, I lean more towards a partial small bowel obstruction. It is notable that when I looked at the 2017 CT, the patient had very similar findings at that time a nd the question of a partial small bowel obstruction was raised then. As mentioned above, the placeme nt of the bowel in the abdomen is slightly unusual, and this raises the question of a jail parti al rotational anomaly. At this point, I would probably assume a partial small bowel obstruction and t reat him as such. Findings discussed with Dr. Marie at 2030 on 02/24/20. Code CR POS: HOME
== END 2020-02-24 21:13 | disposition home or self-care (01) ==
LOC: BURERS 18:46
DX: K56.600 Partial intestinal obstruction, unspecified as to cause (principal); I10 Essential (primary) hypertension; R11.0 Nausea; Z79.899 Other long term (current) drug therapy
CPT/HCPCS: 36415; 71045; 74177; 80053; 80307; 81003; 81015; 83605; 83690; 85025; 87040; 87086; 93005; 96374; C9113; Q9967

== ENCOUNTER 2020-02-29 11:37 | Emergency (ER) | payer MEDICARE ==
[2020-02-29 12:51] LABS: #Basophils 0.1 thou/uL (0.0-0.2); #Lymphocytes 1.4 thou/uL (1.20-3.40); #Monocytes 0.9 thou/uL (0.11-0.59); #Neutrophils 8.6 thou/uL (1.40-6.50); %Basophils 0.6 % (0.0-1.0); %Eosinophils 0.3 % (0.0-10.0); %Monocytes 8.3 % (0.0-10.0); %Neutrophils 77.9 % (42.0-75.0); Mean Corpuscular HGB CONC 30.8 g/dL (32.0-36.0); Mean Corpuscular Hemoglobin 27.2 pg (27.0-31.0); Mean Corpuscular Volume 88.3 fL (78.0-98.0); Mean Platelet Volume 8.2 fL (7.4-10.4); Platelet Count 230 thou/uL (130-400); RBC Distribution Width 14.9 % (11.5-14.5); Red Blood Cell (RBC) Count 3.31 mill/uL (4.70-6.10)
[2020-02-29 13:05] LABS: ALT (SGPT) 20 U/L (8-55); AST (SGOT) 19 U/L (5-34); Albumin 3.5 g/dL (3.4-4.8); Alkaline Phosphatase 74 U/L (40-110); Anion Gap 14 mmol/L (10-20); BUN (Urea Nitrogen) 55 mg/dL (8.4-25.7); Bilirubin, Total 1.1 mg/dL (0.2-1.2); Calc. Creatinine Clearance 0 mL/min (70-130); Calcium 9.3 mg/dL (7.8-10.44); Carbon Dioxide 24 mmol/L (23-31); Chloride 107 mmol/L (98-107); Estimated GFR-MDRD 27; Globulin 4.4 g/dL (2.4-3.5); Glucose 128 mg/dL (83-110); Lipase 29 U/L (8-78); Potassium 3.5 mmol/L (3.5-5.1); Protein, Total 7.9 g/dL (5.8-8.1); Sodium 141 mmol/L (136-145)
[2020-02-29 13:27] LABS: Bilirubin Small (Negative); Blood, Urine Small (Negative); Clarity Cloudy (Clear); Glucose, Urine (Dipstick) Negative (Negative); Ketone, Urine Negative (Negative); Leukocyte Negative (Negative); Nitrite Negative (Negative); Protein, Urine (Dipstick) 100 mg/dL (Neg-Trace); Specific Gravity, Urine 1.015 (1.005-1.030); Urobilinogen 0.2 mg/dL (Less than 2); pH, Urine 5.5 (5.0-9.0)
[2020-02-29 13:35] LABS: Bacteria/HPF 3+ HPF (None Seen); Mucous/LPF 1+ LPF (<2+); RBC/HPF 0-3 HPF (0-3); Squamous Epithelial 0-3 HPF (0-3); WBC/HPF 0-3 HPF (0-3)
--- NOTE | 2020-02-29 20:38 | CT ---
CT ABDOMEN AND PELVIS WITH CONTRAST: Date: 02-29-[address] of the abdomen and pelvis was done for evaluation of abdominal pain. Comparison: 02-24-2020, 02-04-2020 FINDINGS: The dilated small bowel and stomach seen previously has decompressed in the interval. The stomach is now no longer distended with fluid. A few of the loops of proximal small bowel are mildly dilated, bu t there are much fewer loops dilated than before. Overall this represents a significant improvement i n the appearance of the upper abdomen over the interval. There is no sign of free air or free fluid i n the abdomen. The remaining bowel loops are not distended. No inflammatory changes are seen in the a bdominal fat. Otherwise, the lung bases are clear except for some dependent atelectasis. The liver, spleen, pancrea s, kidneys and abdominal aorta showed no acute findings. Gallstones were noted in the gallbladder was usual. CT of the pelvis showed no pelvic masses, fluid collections, or inflammatory changes. The pro state is large. IMPRESSION: Significant interval improvement in the degree of distention of the stomach and proximal small bowel since the prior study of 02-24-2020. Findings discussed with Dr. Moe at 1324 on 02-29-2020. POS: HOME
== END 2020-02-29 14:30 | disposition home or self-care (01) ==
LOC: BURERS 11:37
DX: R10.9 Unspecified abdominal pain (principal); R11.0 Nausea; I10 Essential (primary) hypertension; Z79.899 Other long term (current) drug therapy
CPT/HCPCS: 36415; 74177; 80053; 81003; 81015; 83605; 83690; 84484; 85025; 93005; 96360; Q9967

== ENCOUNTER → 2020-03-13 | Emergency (ER) | payer MEDICARE ==
[~2020-03-13] MED LIST changes: -Iopamidol 370 76% 100 ML VIAL ONE; +Morphine 4 MG/ML VIAL ONE; +Ondansetron PF 4 MG/2 ML Vial ONE
[2020-03-13 15:09] LABS: #Basophils 0.1 thou/uL (0.0-0.2); #Lymphocytes 1.1 thou/uL (1.20-3.40); #Monocytes 0.6 thou/uL (0.11-0.59); #Neutrophils 8.4 thou/uL (1.40-6.50); %Basophils 0.6 % (0.0-1.0); %Eosinophils 0.1 % (0.0-10.0); %Lymphocytes 10.6 % (21.0-51.0); %Monocytes 6.3 % (0.0-10.0); %Neutrophils 82.4 % (42.0-75.0); Hemoglobin 10.2 g/dL (14.0-18.0); Mean Corpuscular HGB CONC 29.7 g/dL (32.0-36.0); Mean Corpuscular Hemoglobin 26.7 pg (27.0-31.0); Mean Corpuscular Volume 89.8 fL (78.0-98.0); Platelet Count 453 thou/uL (130-400); Red Blood Cell (RBC) Count 3.82 mill/uL (4.70-6.10); White Blood Cell (WBC) Count 10.2 thou/uL (4.8-10.8)
[2020-03-13 15:22] LABS: ALT (SGPT) 16 U/L (8-55); AST (SGOT) 18 U/L (5-34); Albumin 3.9 g/dL (3.4-4.8); Alkaline Phosphatase 88 U/L (40-110); Anion Gap 16 mmol/L (10-20); BUN (Urea Nitrogen) 18 mg/dL (8.4-25.7); Bilirubin, Total 0.8 mg/dL (0.2-1.2); Calc. Creatinine Clearance 0 mL/min (70-130); Calcium 9.4 mg/dL (7.8-10.44); Carbon Dioxide 26 mmol/L (23-31); Chloride 100 mmol/L (98-107); Estimated GFR-MDRD 53; Globulin 5.2 g/dL (2.4-3.5); Glucose 148 mg/dL (83-110); Lipase 9 U/L (8-78); Potassium 4.3 mmol/L (3.5-5.1); Protein, Total 9.1 g/dL (5.8-8.1); Sodium 138 mmol/L (136-145)
[2020-03-13 15:48] LABS: Bilirubin Small (Negative); Blood, Urine Negative (Negative); Clarity Hazy (Clear); Glucose, Urine (Dipstick) Negative (Negative); Ketone, Urine Trace mg/dL (Negative); Leukocyte Negative (Negative); Nitrite Negative (Negative); Protein, Urine (Dipstick) 100 mg/dL (Neg-Trace)
[2020-03-13 15:53] LABS: Bacteria/HPF 3+ HPF (None Seen); RBC/HPF 0-3 HPF (0-3); WBC/HPF 0-3 HPF (0-3)
[2020-03-13 15:54] LABS: Mucous/LPF Few LPF (<2+)
--- NOTE | 2020-03-13 16:07 | RAD ---
FRONTAL RADIOGRAPH CHEST TWO VIEWS ABDOMEN: Date: 03-13-2020 Comparison: None History: Right sided abdominal pain, epigastric pain. History of bowel obstruction. FINDINGS: There is mild increased linear density in the perihilar regions with no pneumothorax, pleural fluid, lobar consolidation or alveolar edema. 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 The bowel gas pattern is nonspecific. There are a few air fluid levels in the epigastric region with mild gaseous distention of bowel which could signify small or large bowel. IMPRESSION: Mild gaseous distention of bowel in the upper abdomen with air fluid levels. No free intraperitoneal air. Findings could be related to ileus or small bowel obstruction. Follow up advised. POS: COMPA
== END ==
LOC: BURERS 14:22
DX: K56.609 Unspecified intestinal obstruction, unspecified as to partial versus complete obstruction (principal); R11.2 Nausea with vomiting, unspecified; I10 Essential (primary) hypertension; Z79.899 Other long term (current) drug therapy
CPT/HCPCS: 74022; 80053; 81003; 81015; 83605; 83690; 84484; 85025; 93005; 96361; 96374; 96375; J2270; J2405

== ENCOUNTER → 2020-03-23 | Emergency (ER) | payer MEDICARE ==
[~2020-03-23] MED LIST changes: +Famotidine In NaCl 20 mg/50 ml Premix Bag ONE; +Fentanyl 100 MCG/2 ML VIAL ONE; -Morphine 4 MG/ML VIAL ONE
[2020-03-23 15:08] LABS: #Basophils 0.1 thou/uL (0.0-0.2); #Lymphocytes 1.7 thou/uL (1.20-3.40); #Monocytes 0.8 thou/uL (0.11-0.59); #Neutrophils 8.4 thou/uL (1.40-6.50); %Basophils 0.7 % (0.0-1.0); %Eosinophils 0.1 % (0.0-10.0); %Lymphocytes 15.5 % (21.0-51.0); %Monocytes 7.5 % (0.0-10.0); %Neutrophils 76.3 % (42.0-75.0); Hemoglobin 10.6 g/dL (14.0-18.0); Mean Corpuscular HGB CONC 30.5 g/dL (32.0-36.0); Mean Corpuscular Hemoglobin 26.9 pg (27.0-31.0); Mean Corpuscular Volume 88.1 fL (78.0-98.0); Platelet Count 387 thou/uL (130-400); Red Blood Cell (RBC) Count 3.94 mill/uL (4.70-6.10)
[2020-03-23 15:23] LABS: ALT (SGPT) 11 U/L (8-55); AST (SGOT) 17 U/L (5-34); Albumin 3.9 g/dL (3.4-4.8); Alkaline Phosphatase 80 U/L (40-110); Anion Gap 20 mmol/L (10-20); BUN (Urea Nitrogen) 25 mg/dL (8.4-25.7); Bilirubin, Total 1.2 mg/dL (0.2-1.2); Calc. Creatinine Clearance 0 mL/min (70-130); Calcium 9.6 mg/dL (7.8-10.44); Carbon Dioxide 22 mmol/L (23-31); Chloride 102 mmol/L (98-107); Estimated GFR-MDRD 43; Globulin 4.8 g/dL (2.4-3.5); Glucose 121 mg/dL (83-110); Lipase 7 U/L (8-78); Potassium 3.7 mmol/L (3.5-5.1); Protein, Total 8.7 g/dL (5.8-8.1); Sodium 140 mmol/L (136-145)
--- NOTE | 2020-03-24 09:27 | CT ---
CT OF THE ABDOMEN AND PELVIS WITHOUT CONTRAST: 03/23/20 COMPARISON: Comparison is made with the prior study of 03/13. The major finding on the study is distention of the stomach with a large amount of fluid and distenti on of proximal small bowel consistent with a proximal small bowel obstruction. The degree of dilation of small bowel is greater than it was 10 days ago, some loops being as wide as 5.5 cm now. A few mor e loops appear affected. I believe the transition point is at a point between the epigastric region a nd the umbilicus. All small bowel and large bowel after this point show no obstructive findings. The lung bases are clear. The liver, spleen, pancreas, adrenal glands, kidneys, and abdominal aorta s howed no acute findings within the limitations of a noncontrast study. No free air or free fluid was seen to suggest perforation. CT of the pelvis showed no pelvic masses, fluid collections or other acute changes. Extensive degener ative changes are seen in the patient's lumbar spine. No fractures or bony destructive lesions were a ppreciated. IMPRESSION: Proximal small bowel obstruction with slight worsening in dilation since the prior exam ten days ago. Findings discussed with Dr. Barron at 1521 on 03/23/20. POS: HOME
== END ==
LOC: BURERS 14:16
DX: K56.609 Unspecified intestinal obstruction, unspecified as to partial versus complete obstruction (principal); I10 Essential (primary) hypertension; R11.2 Nausea with vomiting, unspecified; Z79.899 Other long term (current) drug therapy
CPT/HCPCS: 74176; 80053; 83690; 84484; 85025; 94760; 96365; 96375; J2405; J3010

== ENCOUNTER 2022-05-02 19:07 | Emergency (ER) | payer MEDICARE ==
[2022-05-02 20:02] LABS: Hemoglobin 7.1 g/dL (14.0-18.0); Mean Corpuscular HGB CONC 32.1 g/dL (32.0-36.0); Mean Corpuscular Hemoglobin 28.4 pg (27.0-31.0); Mean Corpuscular Volume 88.4 fL (78.0-98.0); Mean Platelet Volume 10.3 fL (7.4-10.4); Platelet Count 208 thou/uL (130-400); RBC Distribution Width 15.7 % (11.5-14.5); White Blood Cell (WBC) Count 4.3 thou/uL (4.8-10.8)
[2022-05-02 20:14] LABS: ALT (SGPT) 23 U/L (8-55); AST (SGOT) 34 U/L (5-34); Albumin 3.4 g/dL (3.4-4.8); Alkaline Phosphatase 75 U/L (40-110); Anion Gap 16 mmol/L (10-20); BUN (Urea Nitrogen) 39 mg/dL (8.4-25.7); Bilirubin, Total 0.7 mg/dL (0.2-1.2); Calc. Creatinine Clearance 0 mL/min (70-130); Calcium 8.3 mg/dL (7.8-10.44); Carbon Dioxide 19 mmol/L (23-31); Chloride 106 mmol/L (98-107); Estimated GFR 16; Globulin 4.8 g/dL (2.4-3.5); Glucose 102 mg/dL (83-110); Potassium 3.8 mmol/L (3.5-5.1); Protein, Total 8.2 g/dL (5.8-8.1); Sodium 137 mmol/L (136-145)
[2022-05-02 20:21] LABS: Band 24 % (5-11); Large Platelets SLIGHT; Lymphocytes 19 % (21-51); MDiff Complete? YES; Monocytes 7 % (0-10); Neutrophil 48 % (42-75); Reactive Lymphocytes 2 % (0-10)
[2022-05-02 21:23] LABS: Bilirubin Moderate (Negative); Blood, Urine Large (Negative); Clarity Clear (Clear); Glucose, Urine (Dipstick) Negative (Negative); Ketone, Urine 15 mg/dL (Negative); Leukocyte Negative (Negative); Nitrite Negative (Negative); Protein, Urine (Dipstick) 100 mg/dL (Neg-Trace); Specific Gravity, Urine 1.025 (1.005-1.030)
[2022-05-02 21:37] LABS: Bacteria/HPF Rare-Few HPF (None Seen); Squamous Epithelial 0-3 HPF (0-3); WBC/HPF 0-3 HPF (0-3)
== END 2022-05-02 21:35 | disposition short-term general hospital (02) ==
LOC: BURERS 19:07
DX: N17.9 Acute kidney failure, unspecified (principal); E86.0 Dehydration; D64.9 Anemia, unspecified; I10 Essential (primary) hypertension; Z79.899 Other long term (current) drug therapy
CPT/HCPCS: 74176; 80053; 81003; 81015; 82274; 83690; 84484; 85025; 93005; 96360

== ENCOUNTER 2022-06-11 14:51 | Emergency (ER) | payer MEDICARE | END 2022-06-11 15:12 | disposition home or self-care (01) | LOC: BURERS 14:51 | DX: Z00.00 Encounter for general adult medical examination without abnormal findings (principal) | CPT/HCPCS: 99282 ==

== ENCOUNTER 2022-08-20 14:59 | Emergency (ER) | payer MEDICARE ==
[2022-08-20] MEDS ORDERED: Ibuprofen 200 MG TAB ONE (16:15)
== END 2022-08-20 16:30 | disposition home or self-care (01) ==
LOC: BURERS 14:59
DX: S22.32XA Fracture of one rib, left side, initial encounter for closed fracture (principal); S20.212A Contusion of left front wall of thorax, initial encounter; I10 Essential (primary) hypertension; W18.09XA Striking against other object with subsequent fall, initial encounter; Y92.000 Kitchen of unspecified non-institutional (private) residence as the place of occurrence of the external cause; Z79.899 Other long term (current) drug therapy
CPT/HCPCS: 71250

== ENCOUNTER 2023-12-02 13:51 | Emergency (ER) | payer MEDICARE ==
[~2023-12-02 13:51] MED LIST changes: -Famotidine In NaCl 20 mg/50 ml Premix Bag ONE; -Fentanyl 100 MCG/2 ML VIAL ONE; +Iopamidol 370 76% 100 ML VIAL ONE; -Ondansetron PF 4 MG/2 ML Vial ONE
[2023-12-02] MEDS ORDERED: Ketorolac Tromethamine 30 MG (1 mL) VIAL ONE (14:13)
[2023-12-02 14:24] LABS: #Basophils 0.1 thou/uL (0.0-0.2); #Lymphocytes 1.6 thou/uL (1.20-3.40); #Monocytes 0.4 thou/uL (0.11-0.59); %Basophils 1.1 % (0.0-1.0); %Eosinophils 0.8 % (0.0-10.0); %Lymphocytes 31.5 % (21.0-51.0); %Monocytes 8.4 % (0.0-10.0); %Neutrophils 58.1 % (42.0-75.0); Hematocrit 19.2 % (42.0-52.0); Mean Corpuscular HGB CONC 31.2 g/dL (32.0-36.0); Mean Corpuscular Hemoglobin 26.9 pg (27.0-31.0); Mean Corpuscular Volume 86.3 fl (78.0-98.0); Mean Platelet Volume 9.7 fL (7.4-10.4); Platelet Count 271 10x3/uL (130-400); Red Blood Cell (RBC) Count 2.23 mill/uL (4.70-6.10); White Blood Cell (WBC) Count 5.1 10x3/uL (4.8-10.8)
[2023-12-02 14:39] LABS: ALT (SGPT) 19 U/L (8-55); AST (SGOT) 19 U/L (5-34); Albumin 3.1 g/dL (3.4-4.8); Alkaline Phosphatase 84 U/L (40-110); Anion Gap 11 mmol/L (10-20); BUN (Urea Nitrogen) 28 mg/dL (8.4-25.7); Bilirubin, Total 0.4 mg/dL (0.2-1.2); Calc. Creatinine Clearance 0 mL/min (70-130); Calcium 8.5 mg/dL (7.8-10.44); Carbon Dioxide 22 mmol/L (23-31); Chloride 106 mmol/L (98-107); Estimated GFR 47; Globulin 4.4 g/dL (2.4-3.5); Glucose 107 mg/dL (83-110); Lipase 27 U/L (8-78); Potassium 4.2 mmol/L (3.5-5.1); Protein, Total 7.5 g/dL (5.8-8.1); Sodium 135 mmol/L (136-145)
[2023-12-02 14:40] LABS: Elliptocytes SLIGHT = 2-5 cells (100X) (0-1/hpf); MDiff Complete? YES; Macrocytosis SLIGHT = 6-15 cells (100X) (0-5/hpf); Microcytosis SLIGHT = 6-15 cells (100X) (0-5/hpf)
[2023-12-02 14:41] LABS: Hypochromia SLIGHT = 6-15 cells (100X) (0-5/hpf)
[2023-12-02 15:25] LABS: Prothrombin Time 13.1 sec (12.0-14.7)
[2023-12-02 15:26] LABS: PTT 36.4 sec (22.9-36.1)
[2023-12-02 15:55] LABS: Bilirubin Negative (Negative); Blood, Urine Trace (Negative); Clarity Clear (Clear); Glucose, Urine (Dipstick) Negative (Negative); Ketone, Urine Negative (Negative); Leukocyte Negative (Negative); Nitrite Negative (Negative); Protein, Urine (Dipstick) 30 mg/dL (Neg-Trace); Urobilinogen 0.2 mg/dL (Less than 2); pH, Urine 5.5 (5.0-9.0)
[2023-12-02 16:01] LABS: Bacteria/HPF 3+ HPF (None Seen); CAUTI Indications for Culture Pelvic or flank pain; RBC/HPF 0-3 HPF (0-3); Squamous Epithelial 0-3 HPF (0-3); WBC/HPF 0-3 HPF (0-3)
[2023-12-02 16:02] LABS: Urine Culture Reflex No No
[2023-12-02 23:25] LABS: Iron 30 ug/dL (65-175); Iron Binding Capacity, Total 178 mcg/dL (261-462)
== END 2023-12-02 21:43 | disposition short-term general hospital (02) ==
LOC: BURERS 13:51
DX: D64.9 Anemia, unspecified (principal); R10.84 Generalized abdominal pain; I10 Essential (primary) hypertension; Z79.899 Other long term (current) drug therapy
CPT/HCPCS: 71045; 74177; 80053; 81001; 82728; 83540; 83550; 83690; 85025; 85610; 85730; 93005; 94760; 96374; J1885; Q9967